=== PATIENT | male | born 1945 | race Caucasian/White ===

== ENCOUNTER 2018-07-12 07:15 | Day surgery (SDC) | payer MEDICARE, BC ==
[~2018-07-12 07:15] MED LIST: Lactated Ringers 1,000 ML IV SCH; Lidocaine 1%/Sod Bicarbonate in NS 8.4% 1 ML Syringe IDERM PRN; Sodium Chloride 0.9% 10 ML Syringe FLUSH PRN
--- NOTE | 2018-07-12 07:51 | PCM.PREANE ---
Preanesthetic Assessment - Procedure Proposed Procedure: diagnostic egd - Anesthesia/Transfusion/Family Hx Anesthesia History: Prior Anesthesia Without Reaction Family History of Anesthesia Reaction: No Transfusion History: No Prior Transfusion(s) - Review of Systems General: No Symptoms Pulmonary: No Symptoms Cardiovascular: No Symptoms, Palpitations (occasionally) Gastrointestinal: Abdominal Pain, Diarrhea (yesterday) Neurological: Other (stroke in past due to coming off of xarelto-5 years ago) Other: Reports: Easy Bruising - Physical Assessment NPO Status Date: 07/11/18 NPO Status Time: 22:00 Pulse: 93 O2 Sat by Pulse Oximetry: 98 Respiratory Rate: 16 Blood Pressure: 121/77 Temperature: 97.1 F Height: 5 ft 11 in Weight: 108 kg ASA Class: 3 Mental Status: Alert & Oriented x3 Airway Class: Mallampati = 1 Dentition: Reports: Normal Dentition Thyro-Mental Finger Breadths: 3 Mouth Opening Finger Breadths: 3 ROM/Head Extension: Full Lungs: Clear to Auscultation, Normal Respiratory Effort Cardiovascular: Irregular Rhythm - Allergies Allergies/Adverse Reactions: Allergies Allergy/AdvReac Type Severity Reaction Status Date / Time Sulfa (Sulfonamide Allergy Other Verified 07/11/18 14:03 Antibiotics) - Blood Blood Available: No - Anesthesia Plan Beta Ana: Metoprolol Med Last Dose Date: 07/11/18 Med Last Dose Time: 22:00 - Acknowledgements Anesthesia Type Planned: MAC Pt an Appropriate Candidate for the Planned Anesthesia: Yes Alternatives and Risks of Anesthesia Discussed w Pt/Guardian: Yes Pt/Guardian Understands and Agrees with Anesthesia Plan: Yes PreAnesthesia Questionnaire HEENT History: Reports: Impaired Vision Cardiovascular History: Reports: Afib, Arrhythmia, High Cholesterol (denies), Hypertension (denies), Other (See Below) Other Cardiovascular History: aflutter, aortic valve insufficiency Respiratory History: Reports: Sleep Apnea (uses cpap) Gastrointestinal History: Reports: Gastritis, GERD (not alot lately), Other ( See Below) Other Gastrointestinal History: dyspepsia, hiccups Genitourinary History: Reports: Other (See Below) Other Genitourinary History: enlarged prostate 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: Reports: None Musculoskeletal History: Reports: Osteoarthritis Neurological History: Reports: Other (See Below) Other Neuro History: hemorrhagic stroke Psychiatric History: Reports: Other (See Below) Other Psychiatric History: insomnia Other Endocrine/Metabolic History: goiter Hematologic History: Reports: None Immunologic History: Reports: None Oncologic (Cancer) History: Reports: None Dermatologic History: Reports: Other (See Below) Other Dermatologic History: sebaceous cyst skin - Past Surgical History Head Surgeries/Procedures: Reports: None HEENT Surgical History: Reports: None Cardiovascular Surgical History: Reports: None Respiratory Surgical History: Reports: None GI Surgical History: Reports: Colonoscopy, EGD, Other (See Below) Other GI Surgeries/Procedures: fissurectomy with sphincterotomy, fistulectomy Female Surgical History: Reports: None Male Surgical History: Reports: None Endocrine Surgical History: Reports: Thyroidectomy Neurological Surgical History: Reports: Other (See Below) Other Neurological Surgeries/Procedures: herniated disc surgery Musculoskeletal Surgical History: Reports: Hip Replacement, Knee Replacement Oncologic Surgical History: Reports: None - SUBSTANCE USE Smoking Status *Q: Never Smoker Tobacco Use Within Last Twelve Months: No Second Hand Smoke Exposure: No Days Per Week of Alcohol Use: 0 Recreational Drug Use History: No - HOME MEDS Home Medications: Home Meds Warfarin [Coumadin] 5 mg PO SUTUWETHSA 10/01/14 [History] Metoprolol Succinate [Toprol XL 50mg] 50 mg PO BID 12/11/14 [History] Diltiazem [Cardizem CD] 120 mg PO DAILY 07/11/18 [History] Warfarin Sodium 2.5 mg PO MOFR 07/11/18 [History] - CURRENT (IN HOUSE) MEDS Current Meds: Current Medications Lactated Ringer's (Ringers, Lactated) 1,000 mls @ 125 mls/hr IV ASDIRECTED AMADA Stop: 07/12/18 23:00 Lidocaine/Sodium Bicarbonate (Buffered Lidocaine 1% In Ns 8.4%) 0.25 ml IDERM ONETIME PRN PRN Reason: Prior to IV Start Stop: 07/12/18 23:00 Sodium Chloride (Saline Flush) 10 ml FLUSH ASDIRECTED PRN PRN Reason: Keep Vein Open Stop: 07/12/18 23:00
[2018-07-12] MEDS ORDERED: Lidocaine 1% PF 2 ML SDV ONE (08:16)
[2018-07-12] MEDS ORDERED: Propofol 200 MG/20 ML SDV ONE (08:16)
[2018-07-12] MEDS ORDERED: Midazolam 1 MG/ML 2 ML SDV ONE (08:16)
[2018-07-12] MEDS ORDERED: Metoprolol Tartrate 5 MG/5 ML SDV ONE (08:17)
--- NOTE | 2018-07-12 08:58 | PCM.OPNOTE ---
- General Post-Op/Procedure Note Date of Surgery/Procedure: 07/12/18 Operative Procedure(s): Esophagogastroduodenoscopy with cold forceps biopsy Pre Op Diagnosis: Dyspepsia, GERD Post-Op Diagnosis: Gastritis, Esophagitis Anesthesia Technique: MAC Primary Surgeon: Lisandro Duarte Anesthesia Provider: Marcio Ríos EBL in mLs: 5 Complications: None Condition: Good Free Text/Narrative:: After the patient gave verbal and written consent he was placed on blood pressure and pulse ox monitoring. He was given IV sedation which he tolerated well. The olympus gastroscope was inserted per oropharynx and passed down to the second portion of the duodenum. The scope was slowly withdrawn. The mucosal surfaces were carefully examined. Superficial gastritis was noted in the antrum and body of the stomach. Cold forceps biopsies were taken. The scope was retroflexed and the cardia was normal to appearance. THe scope was then straightened out and brought back to the GE junction. There was esophagitis noted and biopsied with cold forceps biopsy. There was good hemostasis at the end of the procedure. The scope was then removed. The patient left the endoscopy suite in good condition and there were no complications.
[2018-07-12 10:47] VITALS: BP 110/78
== END 2018-07-12 10:05 | disposition home or self-care (01) ==
LOC: JD.SDS 07:15
PROVIDERS: ATTEND Family Medicine
DX: K29.50 Unspecified chronic gastritis without bleeding (principal); K21.0 Gastro-esophageal reflux disease with esophagitis; I48.0 Paroxysmal atrial fibrillation; E78.5 Hyperlipidemia, unspecified; M19.90 Unspecified osteoarthritis, unspecified site; I35.1 Nonrheumatic aortic (valve) insufficiency; G47.33 Obstructive sleep apnea (adult) (pediatric); Z99.89 Dependence on other enabling machines and devices; Z79.01 Long term (current) use of anticoagulants; Z79.899 Other long term (current) drug therapy
CPT/HCPCS: 43239; J2001; J2704; J3490; J7120; 00731; J2250

== ENCOUNTER 2019-06-24 08:50 | Emergency (ER) | payer MEDICARE, BC ==
[2019-06-24] MEDS ORDERED: Sodium Chloride 0.9% 10 ML Syringe FLUSH PRN (09:28)
[2019-06-24] MEDS ORDERED: Ondansetron 4 MG/2 ML SDV IVPUSH ONE (09:28)
[2019-06-24] MEDS ORDERED: Sodium Chloride 0.9% 1,000 ML IV SCH (09:30)
--- NOTE | 2019-06-24 09:37 | EDM.PDOC ---
<Gracie Linda - Last Filed: 06/24/19 09:24> ED HPI GENERAL MEDICAL PROBLEM - General Chief Complaint: General Stated Complaint: HIGH HEART RATE-SENT FROM [facility] Time Seen by Provider: 06/24/19 09:01 Source of Information: Reports: Patient History Limitations: Reports: No Limitations - History of Present Illness INITIAL COMMENTS - FREE TEXT/NARRATIVE: Patient is a pleasant 74-year-old male with a history of atrial fibrillation presents to the ED from his PCP's office for flu-like symptoms and a fast heart rate. His PCP is Dr. Maya- he made an appointment with him this morning for his flu-like symptoms including chills, decreased appetite, nausea, and body aches, but when he got there he states the nurse checked his pulse radially and calculated it to be in the 90s. Dr. Maya advised him to come to the ED for further evaluation. He states he has been feeling nauseous, chilled, and a decreased appetite for the past six days. He notes that the chills will occasionally make him shake. He reports he has only been able to eat 3-4 small meals each day, otherwise he will vomit after eating. He has tried drinking small sips of water, but even that makes him feel nauseous if he drinks too much. He has had two episodes of emesis in the past five days. He notes that for the past four to five days, he has had body aches, they seem to be subsiding, but have kept him awake at night. He did not receive the influenza vaccine this year. He denies fever, cough, sore throat, congestion, abdominal pain, chest pain, and shortness of breath. Of note, he is scheduled for an EGD on 07/03/2019 in [place]. Back Pain Score (Numeric/FACES): 3 - Related Data Allergies Allergy/AdvReac Type Severity Reaction Status Date / Time Sulfa (Sulfonamide Allergy Unknown Other Verified 06/24/19 09:04 Antibiotics) Home Meds: Home Meds Warfarin [Coumadin] 5 mg PO DAILY 10/01/14 [History] Metoprolol Succinate [Toprol XL 50mg] 50 mg PO BID 12/11/14 [History] Diltiazem [Cardizem CD] 120 mg PO DAILY 07/11/18 [History] Ondansetron [Zofran ODT] 4 mg PO Q6H PRN #20 tab.dis 06/24/19 [Rx] Pantoprazole Sodium [Protonix] 20 mg PO DAILY 06/24/19 [History] Past Medical History HEENT History: Reports: Impaired Vision Cardiovascular History: Reports: Afib, Arrhythmia, High Cholesterol (denies), Hypertension (denies), Other (See Below) Other Cardiovascular History: aflutter, aortic valve insufficiency Respiratory History: Reports: Sleep Apnea (uses cpap) Gastrointestinal History: Reports: Gastritis, GERD (not alot lately), Other ( See Below) Other Gastrointestinal History: dyspepsia, hiccups Genitourinary History: Reports: Other (See Below) Other Genitourinary History: enlarged prostate 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: 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 Musculoskeletal History: Reports: Osteoarthritis Other Musculoskeletal History: left knee pain Neurological History: Reports: Other (See Below) Other Neuro History: hemorrhagic stroke Psychiatric History: Reports: Other (See Below) Other Psychiatric History: insomnia Other Endocrine/Metabolic History: goiter Hematologic History: Reports: None Immunologic History: Reports: None Oncologic (Cancer) History: Reports: None Dermatologic History: Reports: Other (See Below) Other Dermatologic History: sebaceous cyst skin - Past Surgical History Head Surgeries/Procedures: Reports: None HEENT Surgical History: Reports: None Cardiovascular Surgical History: Reports: None Respiratory Surgical History: Reports: None GI Surgical History: Reports: Colonoscopy, EGD, Other (See Below) Other GI Surgeries/Procedures: fissurectomy with sphincterotomy, fistulectomy Female Surgical History: Reports: None Male Surgical History: Reports: None Endocrine Surgical History: Reports: Thyroidectomy Neurological Surgical History: Reports: Other (See Below) Other Neurological Surgeries/Procedures: herniated disc surgery Musculoskeletal Surgical History: Reports: Hip Replacement, Knee Replacement Oncologic Surgical History: Reports: None Social & Family History - Caffeine Use Caffeine Use: Reports: Soda ED ROS GENERAL - Review of Systems Review Of Systems: See Below Constitutional: Reports: Chills, Fatigue, Decreased Appetite. Denies: Fever, Weakness HEENT: Reports: No Symptoms. Denies: Ear Pain, Eye Pain, Sinus Problem, Throat Pain, Vertigo, Vision Change Respiratory: Reports: No Symptoms. Denies: Shortness of Breath, Cough Cardiovascular: Reports: Lightheadedness. Denies: Chest Pain, Edema, Syncope GI/Abdominal: Reports: Nausea, Vomiting. Denies: Abdominal Pain, Diarrhea, Hematemesis : Reports: No Symptoms. Denies: Dysuria Musculoskeletal: Reports: Muscle Pain (body aches). Denies: Neck Pain, Back Pain Skin: Reports: No Symptoms. Denies: Rash Neurological: Reports: No Symptoms. Denies: Dizziness, Headache, Numbness, Syncope, Tingling Psychiatric: Reports: No Symptoms ED EXAM, GENERAL - Physical Exam Exam: See Below Exam Limited By: No Limitations General Appearance: Alert, WD/WN, No Apparent Distress Eye Exam: Bilateral Eye: Normal Inspection, PERRL Ears: Normal External Exam, Normal Canal, Hearing Grossly Normal, Normal TMs Nose: Normal Inspection, Normal Mucosa, No Blood Throat/Mouth: Normal Inspection, Normal Lips, Normal Teeth, Normal Gums, Normal Voice, No Airway Compromise, Other (posterior oropharynx and tonsils erythematous) Head: Atraumatic, Normocephalic Neck: Normal Inspection, Supple, Non-Tender, Full Range of Motion Respiratory/Chest: No Respiratory Distress, Lungs Clear, Normal Breath Sounds, No Accessory Muscle Use, Chest Non-Tender Cardiovascular: Normal Peripheral Pulses, Regular Rate, Rhythm, No Edema, No Gallop, No Murmur, No Rub GI/Abdominal: Normal Bowel Sounds, Soft, Non-Tender, No Organomegaly, No Distention, No Mass Back Exam: Normal Inspection, Full Range of Motion, NT Extremities: Normal Inspection, Normal Range of Motion, Non-Tender, Normal Capillary Refill, No Pedal Edema Neurological: Alert, Oriented, Normal Cognition, Normal Gait, No Motor/Sensory Deficits Psychiatric: Normal Affect, Normal Mood Skin Exam: Warm, Dry, Intact, Normal Color, No Rash Lymphatic: No Adenopathy Course - Vital Signs Last Recorded V/S: Last Vital Signs Temp 97.3 F 06/24/19 09:00 Pulse 95 06/24/19 09:00 Resp 15 06/24/19 09:00 BP 106/79 06/24/19 09:00 Pulse Ox 100 06/24/19 09:00 - Orders/Labs/Meds Orders: Active Orders 24 hr Category Date Time Status Cardiac Monitoring [RC] . DIRECTED Care 06/24/19 09:29 Active EKG Documentation Completion [RC] STAT Care 06/24/19 09:29 Active Peripheral IV Care [RC] . DIRECTED Care 06/24/19 09:29 Active CXR [Chest 2V] [CR] Stat Exams 06/24/19 09:45 Taken CULTURE STREP A CONFIRMATION [] Stat Lab 06/24/19 09:45 Results STREP SCRN A RAPID W CULT CONF [] Stat Lab 06/24/19 09:45 Results Sodium Chloride 0.9% [Normal Saline] 1,000 ml Med 06/24/19 09:30 Active IV .BOLUS Sodium Chloride 0.9% [Saline Flush] Med 06/24/19 09:28 Active 10 ml FLUSH ASDIRECTED PRN ED Antiemetic Medication Reflex [OM.PC] Stat Oth 06/24/19 09:29 Ordered Peripheral IV Insertion Adult [OM.PC] Stat Oth 06/24/19 09:28 Ordered Medication Orders Sodium Chloride (Normal Saline) 1,000 mls @ 1,000 mls/hr IV .BOLUS AMADA Last Admin: 06/24/19 10:07 Dose: 1,000 mls/hr Sodium Chloride (Saline Flush) 10 ml FLUSH ASDIRECTED PRN PRN Reason: Keep Vein Open Last Admin: 06/24/19 10:05 Dose: 10 ml Labs: Laboratory Tests 06/24/19 06/24/19 06/24/19 Range/Units 10:11 10:11 10:11 WBC 4.52 (4.23-9.07) K/mm3 RBC 5.41 (4.63-6.08) M/mm3 Hgb 15.9 (13.7-17.5) gm/dl Hct 47.0 (40.1-51.0) % MCV 86.9 (79.0-92.2) fl MCH 29.4 (25.7-32.2) pg MCHC 33.8 (32.2-35.5) g/dl RDW Std Deviation 43.9 (35.1-43.9) fL Plt Count 90 L D (163-337) K/mm3 MPV 11.2 (9.4-12.3) fl Neut % (Auto) 69.2 H (34.0-67.9) % Lymph % (Auto) 17.0 L (21.8-53.1) % [place] % (Auto) 12.2 (5.3-12.2) % Eos % (Auto) 0.7 L (0.8-7.0) Baso % (Auto) 0.7 (0.1-1.2) % Neut # (Auto) 3.13 (1.78-5.38) K/mm3 Lymph # (Auto) 0.77 L (1.32-3.57) K/mm3 [place] # (Auto) 0.55 (0.30-0.82) K/mm3 Eos # (Auto) 0.03 L (0.04-0.54) K/mm3 Baso # (Auto) 0.03 (0.01-0.08) K/mm3 Manual Slide Review Abnormal smear PT 17.1 H (9.7-12.0) SECONDS INR 1.61 Sodium 139 (136-145) mEq/L Potassium 3.9 (3.5-5.1) mEq/L Chloride 105 (98-107) mEq/L Carbon Dioxide 21 (21-32) mEq/L Anion Gap 16.9 H (5-15) BUN 17 (7-18) mg/dL Creatinine 1.4 H (0.7-1.3) mg/dL Est Cr Clr Drug Dosing 50.81 mL/min Estimated GFR (MDRD) 50 (>60) mL/min BUN/Creatinine Ratio 12.1 L (14-18) Glucose 123 H (83-115) mg/dL Calcium 8.8 (8.5-10.1) mg/dL Total Bilirubin 0.8 (0.2-1.0) mg/dL AST 41 H (15-37) U/L ALT 59 (16-63) U/L Alkaline Phosphatase 88 (46-116) U/L Troponin I < 0.017 (0.00-0.056) ng/mL Total Protein 6.9 (6.4-8.2) g/dl Albumin 3.4 (3.4-5.0) g/dl Globulin 3.5 gm/dL Albumin/Globulin Ratio 1.0 (1-2) Lipase 116 (73-393) U/L Urine Color (Yellow) Urine Appearance (Clear) Urine pH (5.0-8.0) Ur Specific [place] (1.005-1.030) Urine Protein (Negative) Urine Glucose (UA) (Negative) Urine Ketones (Negative) Urine Occult Blood (Negative) Urine Nitrite (Negative) Urine Bilirubin (Negative) Urine Urobilinogen (0.2-1.0) Ur Leukocyte Esterase (Negative) U Hyaline Cast (Auto) (0-5) /lpf Urine RBC (0-5) /hpf Urine WBC (0-5) /hpf Ur Squamous Epith Cells (0-5) /hpf Amorphous Sediment (NOT SEEN) /hpf Urine Bacteria (FEW) /hpf Urine Mucus (FEW) /hpf 06/24/19 Range/Units 10:35 WBC (4.23-9.07) K/mm3 RBC (4.63-6.08) M/mm3 Hgb (13.7-17.5) gm/dl Hct (40.1-51.0) % MCV (79.0-92.2) fl MCH (25.7-32.2) pg MCHC (32.2-35.5) g/dl RDW Std Deviation (35.1-43.9) fL Plt Count (163-337) K/mm3 MPV (9.4-12.3) fl Neut % (Auto) (34.0-67.9) % Lymph % (Auto) (21.8-53.1) % [place] % (Auto) (5.3-12.2) % Eos % (Auto) (0.8-7.0) Baso % (Auto) (0.1-1.2) % Neut # (Auto) (1.78-5.38) K/mm3 Lymph # (Auto) (1.32-3.57) K/mm3 [place]ickman # (Auto) (0.30-0.82) K/mm3 Eos # (Auto) (0.04-0.54) K/mm3 Baso # (Auto) (0.01-0.08) K/mm3 Manual Slide Review PT (9.7-12.0) SECONDS INR Sodium (136-145) mEq/L Potassium (3.5-5.1) mEq/L Chloride (98-107) mEq/L Carbon Dioxide (21-32) mEq/L Anion Gap (5-15) BUN (7-18) mg/dL Creatinine (0.7-1.3) mg/dL Est Cr Clr Drug Dosing mL/min Estimated GFR (MDRD) (>60) mL/min BUN/Creatinine Ratio (14-18) Glucose (83-115) mg/dL Calcium (8.5-10.1) mg/dL Total Bilirubin (0.2-1.0) mg/dL AST (15-37) U/L ALT (16-63) U/L Alkaline Phosphatase (46-116) U/L Troponin I (0.00-0.056) ng/mL Total Protein (6.4-8.2) g/dl Albumin (3.4-5.0) g/dl Globulin gm/dL Albumin/Globulin Ratio (1-2) Lipase (73-393) U/L Urine Color Dark yellow (Yellow) Urine Appearance Clear (Clear) Urine pH 5.5 (5.0-8.0) Ur Specific [place] 1.025 (1.005-1.030) Urine Protein 1+ H (Negative) Urine Glucose (UA) Negative (Negative) Urine Ketones Trace H (Negative) Urine Occult Blood Trace-intact H (Negative) Urine Nitrite Negative (Negative) Urine Bilirubin 1+ H (Negative) Urine Urobilinogen 1.0 (0.2-1.0) Ur Leukocyte Esterase Negative (Negative) U Hyaline Cast (Auto) 0-5 (0-5) /lpf Urine RBC 5-10 H (0-5) /hpf Urine WBC 0-5 (0-5) /hpf Ur Squamous Epith Cells 0-5 (0-5) /hpf Amorphous Sediment Few H (NOT SEEN) /hpf Urine Bacteria Few (FEW) /hpf Urine Mucus Many H (FEW) /hpf Meds: Medications Generic Name Dose Route Start Last Admin Trade Name Freq PRN Reason Stop Dose Admin Sodium Chloride 1,000 mls @ 1,000 mls/hr 06/24/19 09:30 06/24/19 10:07 Normal Saline IV 1,000 mls/hr .BOLUS AMADA Administration Sodium Chloride 10 ml 06/24/19 09:28 06/24/19 10:05 Saline Flush FLUSH 10 ml ASDIRECTED PRN Administration Keep Vein Open Discontinued Medications Generic Name Dose Route Start Last Admin Trade Name Freq PRN Reason Stop Dose Admin Ondansetron HCl 4 mg 06/24/19 09:28 06/24/19 10:07 Zofran IVPUSH 06/24/19 09:29 4 mg ONETIME ONE Administration Departure - Departure Disposition: Home, Self-Care 01 Clinical Impression: Dehydration, Upper abdominal pain Nausea & vomiting Qualifiers: Vomiting type: unspecified Vomiting Intractability: non-intractable Qualified Code(s): R11.2 - Nausea with vomiting, unspecified - Discharge Information Prescriptions: Ondansetron [Zofran ODT] 4 mg PO Q6H PRN #20 tab.dis PRN Reason: Nausea\vomiting Referrals: Willie Maya Jr, MD [Primary Care Provider] - 1 Week Forms: ED Department Discharge Additional Instructions: Drink plenty of fluids. Take zofran every 6 hours as needed for nausea and vomiting. Follow up with Dr Florence and Dr Maya. Please return if you are worse. Sepsis Event Note - Evaluation Sepsis Screening Result: No Definite Risk - Focused Exam Vital Signs: Vital Signs Temp Pulse Resp BP Pulse Ox 06/24/19 09:00 97.3 F 95 15 106/79 100 Date Exam was Performed: 06/24/19 Time Exam was Performed: 09:24 - My Orders Last 24 Hours: My Active Orders 06/24/19 09:28 Sodium Chloride 0.9% [Saline Flush] 10 ml FLUSH ASDIRECTED PRN Peripheral IV Insertion Adult [OM.PC] Stat 06/24/19 09:29 Cardiac Monitoring [RC] . DIRECTED EKG Documentation Completion [RC] STAT Peripheral IV Care [RC] . DIRECTED ED Antiemetic Medication Reflex [OM.PC] Stat 06/24/19 09:30 Sodium Chloride 0.9% [Normal Saline] 1,000 ml IV .BOLUS 06/24/19 09:45 CXR [Chest 2V] [CR] Stat CULTURE STREP A CONFIRMATION [RM] Stat STREP SCRN A RAPID W CULT CONF [RM] Stat - Assessment/Plan Last 24 Hours: My Active Orders 06/24/19 09:28 Sodium Chloride 0.9% [Saline Flush] 10 ml FLUSH ASDIRECTED PRN Peripheral IV Insertion Adult [OM.PC] Stat 06/24/19 09:29 Cardiac Monitoring [RC] . DIRECTED EKG Documentation Completion [RC] STAT Peripheral IV Care [RC] . DIRECTED ED Antiemetic Medication Reflex [OM.PC] Stat 06/24/19 09:30 Sodium Chloride 0.9% [Normal Saline] 1,000 ml IV .BOLUS 06/24/19 09:45 CXR [Chest 2V] [CR] Stat CULTURE STREP A CONFIRMATION [RM] Stat STREP SCRN A RAPID W CULT CONF [RM] Stat <Tejas Bobo A - Last Filed: 06/24/19 12:45> EKG INTERPRETATION EKG Date: 06/24/19 Time: 09:34 Rhythm: A-Fib Rate (Beats/Min): 79 [place]: LAD-Left [place] Deviation QRS: Normal ST-T: Normal QT: Normal Course - Re-Assessments/Exams Free Text/Narrative Re-Assessment/Exam: 06/24/19 12:30 I ordered an IV NS 1L bolus, zofran 4mg IV, labs, EKG, CXR, UA and an US of his gallbladder. His EKG shows A-fib which he has with no acute changes. His CXR looks good. His CBC looks good. His anion gap is elevated at 16.9. His creatinine is slightly elevated at 1.4. His glucose is elevated at 123. His AST was elevated at 41. His troponin is negative. His lipase is negative. His UA shows no UTI. 06/24/19 12:39 This could be his gallbladder. He has stones. He is seeing GI next week for a EGD. I have sent the US to [facility]. I will get him some zofran. Departure - Departure Time of Disposition: 12:45 Condition: Good - Discharge Information *PRESCRIPTION DRUG MONITORING PROGRAM REVIEWED*: Not Applicable *COPY OF PRESCRIPTION DRUG MONITORING REPORT IN PATIENT DANI: Not Applicable Sepsis Event Note - Focused Exam Date Exam was Performed: 06/24/19 Time Exam was Performed: 12:39
--- NOTE | 2019-06-24 11:37 | US ---
Limited abdominal ultrasound: Multiple real-time images of the upper right abdomen were obtained. Comparison: No prior abdominal imaging is available. Findings: Liver shows no focal parenchymal abnormality but is not optimally seen. Gallbladder shows multiple gallstones. No gallbladder wall thickening or biliary duct dilatation is seen. Right kidney shows no hydronephrosis or discrete mass. Right kidney length is 10.8 cm. Pancreas is obscured from bowel gas. Main portal vein shows normal hepatopedal flow. Impression: 1. Less than optimal study due to bowel gas. 2. Gallstones are noted, no gallbladder wall thickening or biliary duct dilatation is seen. 3. No additional abnormality is noted on this limited study. Diagnostic code #2 This report was dictated in [place] Standard Time
--- NOTE | 2019-06-24 12:43 | CR ---
Chest: PA and lateral views of the chest were obtained. Comparison: Previous chest x-ray of 10/01/14. Heart size at the upper limits of normal. Upper mediastinum is normal. Lungs are clear with no acute parenchymal change. Slight degenerative change is noted within the spine. Previous cervical spine surgery is noted. Impression: 1. Findings as noted above. 2. Nothing acute is appreciated on two-view chest x-ray. Diagnostic code #2 This report was dictated in [place] Standard Time
[2019-06-24 13:02] VITALS: BP 115/84; PULSE 80
== END 2019-06-24 13:00 | disposition home or self-care (01) ==
LOC: JD.ED 08:50
DX: E86.0 Dehydration (principal); R10.10 Upper abdominal pain, unspecified; R11.2 Nausea with vomiting, unspecified; I48.91 Unspecified atrial fibrillation; I48.92 Unspecified atrial flutter; K21.9 Gastro-esophageal reflux disease without esophagitis; G47.30 Sleep apnea, unspecified; Z88.2 Allergy status to sulfonamides; Z79.899 Other long term (current) drug therapy; Z79.01 Long term (current) use of anticoagulants; Z86.73 Personal history of transient ischemic attack (TIA), and cerebral infarction without residual deficits
CPT/HCPCS: 36415; 71046; 76705; 80053; 81001; 83690; 84484; 85025; 85610; 87081; 87430; 87804; 93005; 96361; 96374; 99284; J2405; J7030

== ENCOUNTER 2021-06-27 08:52 | Day surgery (SDC) | payer MEDICARE, BC ==
[~2021-06-27 08:52] MED LIST changes: +Sodium Chloride 0.9% 10 ML Syringe FLUSH SCH
[2021-06-27] MEDS ORDERED: fentaNYL 100 MCG/2 ML SDV ONE ×2 (09:27→12:58)
[2021-06-27] MEDS ORDERED: Propofol 200 MG/20 ML SDV ONE ×7 (09:27→12:36)
[2021-06-27] MEDS ORDERED: Midazolam 1 MG/ML 2 ML SDV ONE (09:27)
[2021-06-27] MEDS ORDERED: Lidocaine 1% 0 ML ONE (09:28)
[2021-06-27] MEDS ORDERED: Lidocaine 1% 4 ML ONE (09:49)
[2021-06-27] MEDS ORDERED: Bupivacaine 0.5% 30 ML SDV ONE (10:29)
[2021-06-27] MEDS ORDERED: Lidocaine 1% with EPINEPHrine 1:100,000 10 ML MDV ONE ×2 (10:30→10:59)
[2021-06-27] MEDS ORDERED: Ondansetron 4 MG/2 ML SDV ONE (10:56)
[2021-06-27] MEDS ORDERED: ceFAZolin 1 GM Vial ONE (11:01)
[2021-06-27] MEDS ORDERED: Lactated Ringers 1,000 ML ONE (11:03)
[2021-06-27] MEDS ORDERED: ePHEDrine 50 MG/ML SDV ONE (12:29)
[2021-06-27] MEDS ORDERED: fentaNYL 100 MCG/2 ML SDV IVPUSH PRN (13:26)
[2021-06-27] MEDS ORDERED: Ondansetron 4 MG/2 ML SDV IVPUSH PRN (13:26)
[2021-06-27] MEDS ORDERED: HYDROmorphone 0.5 MG/0.5 ML Syringe IVPUSH PRN (13:26)
[2021-06-27 16:28] VITALS: BP 120/81; PULSE 97
== END 2021-06-27 16:15 | disposition home or self-care (01) ==
LOC: JD.SDS 08:52
PROVIDERS: ATTEND Surgery
DX: K40.90 Unilateral inguinal hernia, without obstruction or gangrene, not specified as recurrent (principal); I48.20 Chronic atrial fibrillation, unspecified; I10 Essential (primary) hypertension; E78.5 Hyperlipidemia, unspecified; K21.9 Gastro-esophageal reflux disease without esophagitis; Z79.01 Long term (current) use of anticoagulants; G47.30 Sleep apnea, unspecified; Z98.890 Other specified postprocedural states; Z88.2 Allergy status to sulfonamides
CPT/HCPCS: 36415; 49505; 85610; J0690; J2250; J2370; J2405; J2704; J3010; J3490; J7120; 00830; 99100; C1781

== ENCOUNTER 2022-04-12 12:50 | Emergency (ER) | payer MEDICARE, BC ==
[2022-04-12] MEDS ORDERED: Sodium Chloride 0.9% 10 ML Syringe FLUSH PRN ×2 (13:20→13:31)
[2022-04-12] MEDS ORDERED: Iopamidol 755 Mg/ML 100 ML Bottle IVPUSH ONE (13:31)
[2022-04-12] MEDS ORDERED: Iopamidol 755 MG/ML 50 ML Bottle IVPUSH ONE (13:31)
[2022-04-12] MEDS ORDERED: Sodium Chloride 0.9% 100 ML IV SCH (13:45)
[2022-04-12 14:58] LABS: ESTIMATED GFR 57 mL/min (>60)
[2022-04-12 19:16] VITALS: BP 102/77; PULSE 89
== END 2022-04-12 19:15 | disposition home or self-care (01) ==
LOC: JD.ED 12:50
DX: M66.0 Rupture of popliteal cyst (principal); I48.91 Unspecified atrial fibrillation; I10 Essential (primary) hypertension; K21.9 Gastro-esophageal reflux disease without esophagitis; E66.9 Obesity, unspecified; Z88.2 Allergy status to sulfonamides; Z79.01 Long term (current) use of anticoagulants; Z79.899 Other long term (current) drug therapy
CPT/HCPCS: 36415; 75635; 80053; 82550; 85025; 93971; 99284; J3490; Q9967

== ENCOUNTER 2023-01-04 07:50 | Emergency (ER) | payer MEDICARE, BC ==
[2023-01-04 08:03] VITALS: PULSE 71
[2023-01-04 08:11] VITALS: BP 130/101
== END 2023-01-04 08:41 | disposition home or self-care (01) ==
LOC: JD.ED 07:50
DX: T81.40XA Infection following a procedure, unspecified, initial encounter (principal); I48.91 Unspecified atrial fibrillation; E78.00 Pure hypercholesterolemia, unspecified; I10 Essential (primary) hypertension; E66.9 Obesity, unspecified; Z88.1 Allergy status to other antibiotic agents; Z88.0 Allergy status to penicillin; Z79.01 Long term (current) use of anticoagulants; Z79.899 Other long term (current) drug therapy; Z68.31 Body mass index [BMI] 31.0-31.9, adult
CPT/HCPCS: 99283

== ENCOUNTER 2025-01-22 12:13 | Day surgery (SDC) | payer MEDICARE, BC ==
[2025-01-22] MEDS: Tetracaine HCl/PF 0.5% 4 ML Bottle EYEBOTH SCH (07:25)
[2025-01-22] MEDS: Polymyxin B/Trimethoprim 10 ML Bottle EYELF SCH (07:26)
[2025-01-22] MEDS: Pilocarpine 4% Ophth Soln 15 ML Bot EYELF SCH (07:26)
[2025-01-22] MEDS: Lidocaine 1% PF 2 ML SDV INJECT SCH (07:26)
[2025-01-22] MEDS: Cefuroxime 10 MG/ML SYRINGE EYELF SCH (07:26)
[2025-01-22 12:30] VITALS: BP 132/84; PULSE 66
[2025-01-22] MEDS: Tropicamide 1% Ophth Soln 3 ML Bottle EYELF SCH (12:49)
== END 2025-01-22 14:47 | disposition home or self-care (01) ==
LOC: JD.SDS 12:13
PROVIDERS: ATTEND Ophthalmology
DX: E11.36 Type 2 diabetes mellitus with diabetic cataract (principal); H25.813 Combined forms of age-related cataract, bilateral; H21.81 Floppy iris syndrome; H16.223 Keratoconjunctivitis sicca, not specified as Sjogren's, bilateral; H16.103 Unspecified superficial keratitis, bilateral; H02.831 Dermatochalasis of right upper eyelid; H02.834 Dermatochalasis of left upper eyelid; H57.813 Brow ptosis, bilateral; D31.41 Benign neoplasm of right ciliary body; I10 Essential (primary) hypertension; E66.9 Obesity, unspecified; I48.91 Unspecified atrial fibrillation; Z88.2 Allergy status to sulfonamides; Z88.0 Allergy status to penicillin; Z68.30 Body mass index [BMI] 30.0-30.9, adult; Z79.01 Long term (current) use of anticoagulants; Z79.899 Other long term (current) drug therapy
CPT/HCPCS: 66982; A9270; J0697; J3490

== ENCOUNTER 2025-04-04 19:12 | Emergency (ER) | payer MEDICARE, BC ==
[2025-04-04 20:07] LABS: MEAN PLATELET VOLUME 10.3 fl (9.4-12.4); NRBC ABSOLUTE 0.00 (0.00-0.02); NRBC PERCENT 0.0 % (0.0-0.2); PLATELET COUNT,PLT 141 K/mm3 (150-400); RED BLOOD CELL COUNT 5.20 M/mm3 (4.52-5.90); WHITE BLOOD CELL COUNT,WBC 7.81 K/mm3 (3.9-11.3)
[2025-04-04] MEDS ORDERED: Sodium Chloride 0.9% 10 ML Syringe FLUSH PRN (20:23)
[2025-04-04 20:26] LABS: INR 2.15
[2025-04-04 20:30] LABS: A/G RATIO 1.0 (1-2); ALANINE AMINOTRANSFERASE,ALT 20.0 U/L (16-63); ASPARTATE AMNIOTRANSFERASE,AST 16.0 U/L (15-37); BILIRUBIN TOTAL 0.7 mg/dL (0.2-1.0); BLOOD UREA NITROGEN,BUN 20.0 mg/dL (7-18); CARBON DIOXIDE,CO2 26.0 mEq/L (21-32); CHLORIDE,CL 106.0 mEq/L (98-107); CREATININE 1.3 mg/dL (0.7-1.3); EST CRCL DRUG DOSING (CG) 49.07 mL/min; ESTIMATED GFR 56.0 mL/min (>60); GLUCOSE RANDOM 191.0 mg/dL (70-99); POTASSIUM,K 4.3 mEq/L (3.5-5.1); PROTEIN TOTAL,TP 7.1 g/dl (6.4-8.2); SODIUM,NA 140.0 mEq/L (136-145)
[2025-04-04 20:32] LABS: BAND PERCENT MAN 0 % (0-10); BASOPHILS PERCENT MAN 0 (0.2-1.2); EOSINOPHILS PERCENT MAN 0 % (0.8-7.0); LACTIC ACID 1.1 mmol/L (0.4-2.0); LYMPHOCYTES % ATYPICAL MANUAL 1 %; LYMPHOCYTES PERCENT MAN 12 % (20-40); MONOCYTES PERCENT MAN 9 % (2-10); PLATELET COUNT ESTIMATE DECREASED
[2025-04-04] MEDS: Sodium Chloride 0.9% 10 ML Syringe FLUSH PRN (20:57)
[2025-04-04] MEDS: Iopamidol 612 MG/ML 100 ML Bottle IVPUSH ONE (20:57)
[2025-04-04 22:58] VITALS: BP 145/96; PULSE 95
== END 2025-04-04 22:25 | disposition home or self-care (01) ==
LOC: JD.ED 19:12
DX: K04.7 Periapical abscess without sinus (principal); R10.31 Right lower quadrant pain; E66.9 Obesity, unspecified; I10 Essential (primary) hypertension; I48.91 Unspecified atrial fibrillation; Z88.2 Allergy status to sulfonamides; Z88.0 Allergy status to penicillin; Z79.01 Long term (current) use of anticoagulants; Z79.899 Other long term (current) drug therapy; Z68.29 Body mass index [BMI] 29.0-29.9, adult
CPT/HCPCS: 36415; 74177; 80053; 83605; 85007; 85027; 85610; 86140; 87040; 96374; 96375; 99284; J0696; Q9967; J1171